=== PATIENT | male | born 1960 | race Caucasian/White ===

== ENCOUNTER 2016-09-24 14:36 | Emergency (ER) | payer SELFPAY ==
[~2016-09-24] VITALS: Ht 170.2 cm; Wt 110.0 kg
[2016-09-24] MEDS ORDERED: NORCO 5/3251 TABLET PO (18:00)
[2016-09-24] MEDS ORDERED: MOTRIN600 MG PO (18:00)
[2016-09-24 18:30] VITALS: BP 146/90
== END 2016-09-24 18:31 | disposition home or self-care (01) ==
LOC: EME 14:36
DX: S80.01XA Contusion of right knee, initial encounter (principal); S80.02XA Contusion of left knee, initial encounter; S80.212A Abrasion, left knee, initial encounter; V03.10XA Pedestrian on foot injured in collision with car, pick-up truck or van in traffic accident, initial encounter; Y92.481 Parking lot as the place of occurrence of the external cause; I10 Essential (primary) hypertension; E11.9 Type 2 diabetes mellitus without complications; Z87.891 Personal history of nicotine dependence
CPT/HCPCS: 73564; 99281; 99284; J3010